=== PATIENT | male | born 1985 | race Caucasian/White ===

== ENCOUNTER 2024-11-11 16:02 | Emergency (ER) | payer BC | END 2024-11-11 18:16 | disposition home or self-care (01) | LOC: JP.ED 16:02 | DX: S61.411A Laceration without foreign body of right hand, initial encounter (principal); Z79.899 Other long term (current) drug therapy; W26.8XXA Contact with other sharp object(s), not elsewhere classified, initial encounter; Y93.89 Activity, other specified | CPT/HCPCS: 12002; 99282 ==